=== PATIENT | female | born 1975 | race Caucasian/White ===

== ENCOUNTER 2017-02-07 21:58 | Observation (INO) | payer OTHER ==
[~2017-02-07] VITALS: Ht 165.1 cm; Wt 97.7 kg
--- NOTE | ~2017-02-07 | HP ---
History And Physical [id number] [facility] [place]. [address] NAME: TERESA PUENTE : 73 STATUS : ADM Luis Miguel PAT#: [id number] AGE: 41 ADM/REG DATE : 02/07/17 MR#: [id number] REPORT SERV DATE: 02/08/17 DICTATED BY: CHERYL NASCIMENTO DATE: 02/08/17 REPORT STATUS : Draft TRANSCRIBED BY: MODL DATE: 02/08/17 DATE OF ADMISSION: 02/07/2017 CHIEF COMPLAINT: Chest tightness. HISTORY OF PRESENT ILLNESS: A very pleasant 41-year-old white female with no known history of CAD, states that she awoke on 02/07 to go to work. She had some chest tightness on arising and went to work anyway. She states that the discomfort worsened throughout the day. She works on a project/production manager imaging in a warehouse. She describes it as left chest into her neck, it worsened throughout the day and at 2000 hours while at home, she called EMS. She reports shortness of breath, nausea, and belching. Denies diaphoresis or dizziness. At its most intense, she rates it a 9/10. At time of interview in the [facility], she rates it a 2/10 and described as a heaviness or a "residual bruise." EMS transported her here, provided full dose aspirin and nitroglycerin twice which reduced her chest pain from a 9 to a 2 and it has been persistent at 2 since. The patient denies any personal history of myocardial infarction, stroke, DVT, or pulmonary embolus. The patient denies any recent fever or chills. Describes daily palpitations. Consumes three to four 16-ounce Mountain Dews per day. No syncopal events. Denies PND or orthopnea. PAST MEDICAL HISTORY: 1. GERD. 2. Dyslipidemia. 3. Denies hypertension or diabetes. 4. Depression. 5. Ongoing tobacco abuse. 6. Positive family history for early CAD. PAST SURGICAL HISTORY: T and A and . SOCIAL HISTORY: She is with one child. She works on a project/production manager imaging in a warehouse, does not have a structured exercise routine. Smokes one and half packs per day for 30 years. Denies alcohol or illicits. FAMILY HISTORY: Mother with CAD, stents, and stroke in her late 50s, at 74. Father with a heart attack at 52, of colon cancer at 77. Twin brother with CAD and stents at 24, of an epileptic seizure at 29. Brother two of a heart attack at 51. REVIEW OF SYSTEMS: A 14-point review of systems performed, significant for HPI including snores per report with no formal sleep study and a cyst or lipoma on the right lateral ankle for past year, PCP aware. Otherwise, complete review of systems obtained and negative. ALLERGIES: CODEINE CAUSES A RASH. HOME MEDICATIONS: Aspirin 81 mg daily, Naprosyn p.r.n., Zantac 150 mg twice daily, Zoloft 50 History And Physical [address] [address] NAME: TERESA PUENTE : [birth year] STATUS : ADM Luis Miguel PAT#: [id number] AGE: 41 ADM/REG DATE : 02/07/17 MR#: [id number] REPORT SERV DATE: 02/08/17 DICTATED BY: CHERYL NASCIMENTO DATE: 02/08/17 REPORT STATUS : Draft TRANSCRIBED BY: YASIR DATE: 02/08/17 mg daily, Zocor 40 mg nightly. PHYSICAL EXAMINATION: VITAL SIGNS: Bilateral blood pressures on arrival, right 136/79, left 142/87, this morning 123/63, pulse 80, respirations 18, temperature 97.8, O2 saturation 96% on room air. Height 5 feet 5 inches, weight 215 pounds, BMI 36. GENERAL: Cooperative, in no apparent distress. HEENT: Pupils 2 mm, sclera nonicteric. Nares patent. Moist mucous membranes. No xanthelasma. NECK: Trachea midline, no thyromegaly. No JVD. No bruits. LYMPH: No cervical lymphadenopathy. No supraclavicular lymphadenopathy. RESPIRATORY: Unlabored respirations. Breath sounds clear bilaterally to posterior auscultation. No wheezes or rhonchi. CARDIOVASCULAR: Regular rate. No murmur, rub, or gallop appreciated. EXTREMITIES: Without edema. Pulses 2+ bilaterally. A cyst in right lateral ankle; soft, mobile, present for greater than one year, PCP aware. ABDOMEN: Soft, nontender, nondistended, normal bowel sounds auscultated throughout. No organomegaly. SKIN: Warm, dry extremities. No pallor or cyanosis. PSYCHIATRIC: Appropriate affect. Alert, oriented x3. LABORATORY DATA: Troponin less than 0.02 x3, TSH 0.992. Potassium 3.5, BUN 9, creatinine 0.70, glucose 137, magnesium 2.1. WBC 11.9, hemoglobin 15.1, hematocrit 44.7, platelet count 220,000. EKG, sinus rhythm with prolonged QT. ASSESSMENT AND PLAN: 1. Substernal chest pain. The patient has been observed in the CPOU overnight to rule out myocardial infarction with serial enzymes, serial EKGs, and held n.p.o. We will proceed with cardiac PET today if schedule allows, home if negative study. To follow up with her PCP in one to two weeks. If anything suggestive of ischemia, Cardiology referral will be initiated. 2. Dyslipidemia. Continue statin. 3. Ongoing tobacco abuse. Counseled regarding cessation for cardiovascular health and well being. 4. Gastroesophageal reflux disease. Continue PPI. 5. A cyst right ankle, follow up with PCP. Cyst has been present for greater than one year. No injury reported. A questionable cyst or lipoma. GISELE/YASIR Cheryl Nascimento, MSN, PHARMACY SALES REPRESENTATIVE-BC / [id number] History And Physical [address] [address] NAME: TERESA PUENTE : 73 STATUS : ADM Luis Miguel PAT#: [id number] AGE: 41 ADM/REG DATE : 02/07/17 MR#: [id number] REPORT SERV DATE: 02/08/17 DICTATED BY: CHERYL NASCIMENTO DATE: 02/08/17 REPORT STATUS : Draft TRANSCRIBED BY: MODL DATE: 02/08/17 CC: Cheryl Nascimento, MSN, PHARMACY SALES REPRESENTATIVE-BC
[2017-02-07 23:28] LABS: BASOPHILS 0.3 %; BASOPHILS ABSOLUTE 0.03 10/3/uL (0.0-0.16); EOSINOPHILS 1.9 %; EOSINOPHILS ABSOLUTE 0.23 10/3/uL (0.0-0.53); HEMATOCRIT 44.7 % (36.0-48.0); HEMOGLOBIN 15.1 g/dL (12.0-16.0); IMMATURE GRANULOCYTES 0.3 %; IMMATURE GRANULOCYTES ABSOLUTE 0.03 10/3/uL (0.0-0.11); LYMPHOCYTES 19.4 %; LYMPHOCYTES ABSOLUTE 2.31 10/3/uL (0.67-4.30); MEAN CORPUS HGB CONC 33.8 g/dL (32.0-36.0); MEAN CORPUSCULAR HEMOGLOB 30.1 pg (26.0-34.0); MEAN CORPUSCULAR VOLUME 89.2 fL (80-100); MEAN PLATELET VOLUME 9.9 fL (9.2-13.0); MONOCYTES 5.3 %; MONOCYTES ABSOLUTE 0.63 10/3/uL (0.21-1.20); NEUTROPHILS 72.8 %; PLATELET COUNT 220 10/3/uL (150-400); RBC DISTRIBUTION WIDTH 13.2 % (12.0-16.0); RED CELL COUNT 5.01 10/6/uL (4.0-5.6); WHITE BLOOD CELLS 11.9 10/3/uL (4.5-10.5)
[2017-02-07 23:29] LABS: MANUAL DIFF NO %
[2017-02-07 23:36] LABS: PARTIAL THROMBO TIME 27.4 SEC (22.5-37.2); PROTIME (NOT ORD) 13.4 SEC (12.0-14.5)
[2017-02-07 23:45] LABS: BUN (BLOOD UREA NITROGEN) 9 MG/DL (6-23); CALCIUM, SERUM 8.5 MG/DL (8.5-10.4); CHEST PAIN PROFILE TAT 0 Hrs 23 Mins; CHLORIDE, SERUM 110 MMOL/L (96-112); CO2 (CARBON DIOXIDE) 25 MMOL/L (24-34); GFR AFRICAN AMERICAN 124 ML/MIN (>=60); GFR NON AFRICAN AMERICAN 107 ML/MIN (>=60); GLUCOSE, SERUM 137 MG/DL (60-99); POTASSIUM, SERUM 3.5 MMOL/L (3.5-5.3); SODIUM, SERUM 142 MMOL/L (135-148); TROPONIN I <0.02 NG/ML (<0.05)
[2017-02-08] MEDS ORDERED: ASAB PO (04:30)
[2017-02-08] MEDS ORDERED: ZOCOR40 PO (04:30)
[2017-02-08] MEDS ORDERED: ZOL50 PO (04:31)
[2017-02-08] MEDS ORDERED: ZANTAC 150 PO (04:32)
[2017-02-08] MEDS ORDERED: NAP500 PO (04:32)
[2017-02-08 04:33] LABS: TROPONIN I <0.02 NG/ML (<0.05); ULTRASENSITIVE TSH 0.992 MCIU/ML (0.358-3.740)
== END 2017-02-08 16:09 | disposition home or self-care (01) ==
LOC: ER 21:58 → EDBD 21:58 → ER 23:01 → CDU1 23:59 → CDU2 23:59
PROVIDERS: Hospitalist; Nurse Practitioner
DX: R07.89 Other chest pain (principal); E78.5 Hyperlipidemia, unspecified; K21.9 Gastro-esophageal reflux disease without esophagitis; R22.42 Localized swelling, mass and lump, left lower limb; F17.210 Nicotine dependence, cigarettes, uncomplicated; Z82.49 Family history of ischemic heart disease and other diseases of the circulatory system; Z88.5 Allergy status to narcotic agent; Z79.82 Long term (current) use of aspirin; Z79.899 Other long term (current) drug therapy
CPT/HCPCS: 71020; 78492; 80048; 83735; 84443; 84484; 85025; 85610; 85730; 93005; 93017; 96374; 99285; A9270-GY; A9555; G0378; J2785